=== PATIENT | female | born 1975 | race Caucasian/White ===

== ENCOUNTER 2018-12-28 10:25 | Emergency (ER) | payer MEDICAID ==
[2018-12-28] MEDS ORDERED: KETOROLAC 30 MG/ML VIAL IVP ONE (10:44)
[2018-12-28] MEDS ORDERED: 0.9 % SODIUM CHLORIDE 1,000 ML BAG IV ONE (10:44)
[2018-12-28] MEDS ORDERED: ONDANSETRON HCL IV 4 MG/2 ML VIAL IV ONE (10:44)
--- NOTE | 2018-12-28 10:46 | Emergency Department Record ---
History of Present Illness - General Chief Complaint: Chest Pain Stated Complaint: MIGRAINE, PAUL Time Seen by Provider: 12/28/18 10:40 Source: Patient, RN notes reviewed - History of Present Illness Initial Comments: headache this am and nausea and vomiting - Related Data Previous Rx's Medication Instructions Recorded Naproxen [Naprosyn] 500 mg PO Q12H #20 tab 12/28/18 Allergies Allergy/AdvReac Type Severity Reaction Status Date / Time amoxicillin Allergy rash Unverified 10/17/17 15:47 Course - Reevaluation(s) Reevaluation #1: patient is feeling much better 12/28/18 13:29 Medical Decision Making - Data Complexity MDM Data: Labs Ordered and/or Reviewed (trop neg), X-Ray Ordered and/or Reviewed (CT head neg), EKG Ordered and/or Reviewed (EKG normal sinus rhythm, No acute changes) - Lab Data Result diagrams: 12/28/18 10:50 12/28/18 10:50 Disposition Clinical Impression: Headache Qualifiers: Headache type: unspecified Headache chronicity pattern: acute headache Intractability: not intractable Qualified Code(s): R51 - Headache Disposition: Home, Self-Care Condition: (1) Good Instructions: Migraine Headache (ED) Additional Instructions: follow up with family in one week Prescriptions: Naproxen [Naprosyn] 500 mg PO Q12H #20 tab. Forms: Patient Portal Access Time of Disposition: 13:30 Quality - Quality Measures Quality Measures: N/A - Blood Pressure Screening Does Patient Have Any of the Following: No Blood Pressure Classification: Hypertensive Reading Systolic Measurement: 157 Diastolic Measurement: 92 Screening for High Blood Pressure: < First Hypertensive BP, F/U Documented > [[id number]] First Hypertensive Follow-up Interventions: Referral to alternative/primary care provider.
[2018-12-28 10:58] LABS: ABSOLUTE NEUTROPHIL COUNT 5.69; BASO % 0.3 % (0-6); EOS % 1.1 % (0-6); GRAN % 74.9 % (47-80); HEMATOCRIT 42.2 % (35.0-47.0); HEMOGLOBIN 14.5 gm/dl (11.6-16.0); LYMPH % 21.1 % (16-45); MEAN CELL VOLUME 87.6 fl (81-97); MEAN CORPUSCULAR HEMOGLOBIN 30.1 pg (27-33); MEAN CORPUSCULAR HGB CONC 34.4 g/dl (32-36); MEAN PLATELET VOLUME 8.9 fl (7.4-10.4); MONO % 2.6 % (0-9); PLATELET COUNT 262 K/uL (130-400); RED BLOOD COUNT 4.82 M/uL (3.80-5.40); WHITE BLOOD COUNT W/O DIFF 7.6 K/uL (4.2-12.2)
[2018-12-28 11:08] LABS: BLOOD UREA NITROGEN 11 mg/dL (6-20); CREATININE 0.6 mg/dL (0.5-0.9); EST GLOMERULAR FILTRATION RATE > 60 mL/min; TOTAL PROTEIN 8.2 g/dL (6.6-8.7)
[2018-12-28 11:11] LABS: GLUCOSE,RANDOM 143 mg/dL (74-109)
[2018-12-28 11:13] LABS: ALBUMIN 4.7 g/dL (4.0-5.0); ALT/SGPT 13 U/L (<33); AST/SGOT 17 U/L (10.0-35.0)
[2018-12-28 11:14] LABS: ALKALINE PHOSPHATASE 41 U/L (35-104); BILIRUBIN,DIRECT < 0.2 mg/dL (0-0.3)
[2018-12-28 12:43] LABS: URINE APPEARANCE CLEAR; URINE BILIRUBIN NEGATIVE (NEGATIVE); URINE BLOOD NEGATIVE (NEGATIVE); URINE COLOR YELLOW; URINE GLUCOSE (UA) NEGATIVE (NEGATIVE); URINE KETONE NEGATIVE (NEGATIVE); URINE LEUKOCYTE ESTERASE NEGATIVE (NEGATIVE); URINE NITRITE NEGATIVE (NEGATIVE); URINE PROTEIN NEGATIVE (NEGATIVE); URINE UROBILINOGEN 0.2 E.U./dL (0.20 - 1.00)
--- NOTE | 2018-12-31 06:24 | CT SCAN REPORT ---
EXAM: CT SCAN HEAD WO CONTRAST HISTORY: MIGRAINE HEADACHE. CHEST TIGHTNESS. NO KNOWN INJURY. TECHNIQUE: Routine noncontrast CT of the brain. COMPARISON: None. FINDINGS: The ventricles and subarachnoid spaces are normal in size. No area of abnormally increased or decreased attenuation is noted throughout the brain substance. The arnett-white interfaces are distinct. No abnormal extra-axial fluid collection. No acute abnormality of the skull. The visualized paranasal sinuses and mastoid air-cells are clear. The orbits, as visualized, are unremarkable. IMPRESSION: NEGATIVE NONCONTRAST CT APPEARANCE OF THE BRAIN. JOB NUMBER: [id number] [facility]
== END 2018-12-28 13:43 | disposition home or self-care (01) ==
LOC: ER 10:25
DX: R51 Headache (principal); R11.2 Nausea with vomiting, unspecified; R06.00 Dyspnea, unspecified; R07.89 Other chest pain
CPT/HCPCS: 99284 ×2; 96374; 96375; 85025; 85730; 80076; 80048; 81003; 84484; 70450; 93005; 93010; J1885; J2405; J7030